=== PATIENT | male | born 1995 | race Caucasian/White ===

== ENCOUNTER 2024-09-21 12:01 | Outpatient (CLI) | payer OTHER ==
[2024-09-21 13:23] LABS: BASO % 1.2 % (0.1-1.2); EOS # 0.17 (0.04-0.54); EOS % 2.0 % (0.7-7.0); LYMPH # 1.17 (1.18-3.74); LYMPH % 13.5 % (19.3-53.1); MEAN PLATELET VOLUME 9.60 fl (9.4-12.4); MONO # 0.79 (0.24-0.82); MONO % 9.1 % (4.7-12.5); NEUT # 6.39 (1.56-6.13); NEUT % 73.9 % (34.0-71.1); RED CELL DISTRIBUTION WIDTH 12.2 % (11.6-14.4)
[2024-09-21 13:25] LABS: URINE APPEARANCE Clear; URINE BILIRRUBIN Negative (NEGATIVE); URINE BLOOD Negative; URINE COLOR Yellow; URINE GLUCOSE Negative (NEGATIVE); URINE KETONE Negative (NEGATIVE); URINE LEUKOCYTE Negative; URINE NITRATE Negative; URINE PROTEIN Negative (NEGATIVE); URINE UROBILINOGEN 1.0 E.U./dl
[2024-09-21 13:29] LABS: URINE BACTERIA 1.1 uL (0.0-1933); URINE CAST 0.00 uL (0.0-1.40); URINE EPITHELIAL CELLS 0.1 uL (0.0-38.8); URINE RBC 6.3 uL (0.0-20.8); URINE WBC 2.1 uL (0.0-23.2)
[2024-09-21 14:44] LABS: % SATURACION 40.7 % (20-50); ALT/SGPT 40.0 U/L (12-78); AST/SGOT 10.0 U/L (15-37); BILIRUBIN TOTAL 0.98 mg/dL (0.3-1.2); BUN CREA RATIO 20.0 (7.0-25.0); CREATININE SERUM 0.81 mg/dL (0.70-1.30); FE 126.0 ug/dl (65-175); GFR 111.15; GLOBULINA 3.1 G/DL (2.4-3.5); GLUCOSE FASTING 77.0 mg/dL (65-100); LDH 160.0 U/L (87-241); OSMOLALITY SERUM 281.0 MOSM/KG (275-295); T4 FREE 1.22 NG/ML (0.76-1.46); TSH 0.973 uIU/mL (0.358-3.74)
[2024-09-21 14:51] LABS: FOLIC ACID 13.71 ng/ml (4.78-20); VITAMIN D3 25 HYDROXY 27.22 ng/ml (30-120)
[2024-09-21 16:00] LABS: MANUAL PLATELET COUNT 374
[2024-09-25 09:08] LABS: ANTI THYROID PEROXIDASE 12 IU/mL (0-34)
== END 2024-09-21 12:17 | disposition home or self-care (01) ==
LOC: LAB 12:01
PROVIDERS: ATTEND Internal Medicine Hematology & Oncology
DX: D50.8 Other iron deficiency anemias (principal); R79.9 Abnormal finding of blood chemistry, unspecified; K76.89 Other specified diseases of liver; R74.02 Elevation of levels of lactic acid dehydrogenase [LDH]; I10 Essential (primary) hypertension; D55.0 Anemia due to glucose-6-phosphate dehydrogenase [G6PD] deficiency; E55.9 Vitamin D deficiency, unspecified; Z13.29 Encounter for screening for other suspected endocrine disorder; D51.1 Vitamin B12 deficiency anemia due to selective vitamin B12 malabsorption with proteinuria; D51.0 Vitamin B12 deficiency anemia due to intrinsic factor deficiency; D63.1 Anemia in chronic kidney disease; E03.8 Other specified hypothyroidism; E06.3 Autoimmune thyroiditis; D75.1 Secondary polycythemia; N39.0 Urinary tract infection, site not specified